=== PATIENT | female | born 1985 | race Caucasian/White ===

== ENCOUNTER 2018-07-15 11:48 | Emergency (ER) | payer SELFPAY ==
[2018-07-15] MEDS ORDERED: ONDANSETRON 4 MG (ODT) TAB ONE (12:22)
--- NOTE | 2018-07-15 15:43 | ER ---
Nurse's Notes [facility] Name: Lissette Montilla Age: 33 yrs Sex: Female : 1985 Arrival Date: 07/15/2018 Time: 11:51 Bed Waiting Private MD: None, None Diagnosis: Presentation: 07/15 12:12 Presenting complaint: Patient states: N/V/D and headache that began last night. Pt ss reports a history of SVT and feels as if she keeps bouncing in and out of SVT. Transition of care: patient was not received from another setting of care. Onset of symptoms was July 14, 2018. Risk Assessment: Do you want to hurt yourself or someone else? Patient reports no desire to harm self or others. Initial Sepsis Screen: Does the patient meet any 2 criteria? No. Patient's initial sepsis screen is negative. Does the patient have a suspected source of infection? No. Patient's initial sepsis screen is negative. Care prior to arrival: None. 12:12 Method Of Arrival: Ambulatory 12:12 Acuity: VANESSA 3 ss Historical: - Allergies: 12:14 ; ss 12:14 Sulfa (Sulfonamide Antibiotics); ss - PMHx: 12:14 Endometrosis; svt; ss - PSHx: 12:14 Adenoids; Tonsillectomy; ss - Immunization history:: Adult Immunizations up to date. - Social history:: Smoking status: Patient uses tobacco products, smokes one-half pack cigarettes per day. - Ebola Screening: : Patient denies exposure to infectious person Patient denies travel to an Ebola-affected area in the 21 days before illness onset. Vital Signs: 12:14 BP 106 / 68; Pulse 81; Resp 16; Temp 98.6(TE); Pulse Ox 98% on R/A; Weight 44.45 kg ss (M); Height 5 ft. 7 in. (170.18 cm); Pain 7/10; 12:14 Body Mass Index 15.35 (44.45 kg, 170.18 cm) ED Course: 11:51 Patient arrived in ED. sb2 11:53 None, None is Private Physician. sb2 12:13 Triage completed. ss 12:14 Arm band placed on right wrist. ss 14:56 Patient's name was called from ER lobby. No response. sv Administered Medications: 12:18 Drug: Zofran 4 mg Route: PO; Outcome: 15:42 Patient left the ED. sv Signatures: Zainab Will RN RN Jenny Tinajero RN RN ss Judith Braxton sb2 Corrections: (The following items were deleted from the chart) 12:13 12:12 Presenting complaint: ss ss
== END 2018-07-15 15:42 | disposition left against medical advice (07) ==
LOC: ER 11:48
DX: R11.2 Nausea with vomiting, unspecified (principal); R19.7 Diarrhea, unspecified; R51 Headache; I47.1 Supraventricular tachycardia; Z88.2 Allergy status to sulfonamides; F17.210 Nicotine dependence, cigarettes, uncomplicated
CPT/HCPCS: 99282